=== PATIENT | female | born 1980 | race Caucasian/White ===

== ENCOUNTER 2016-09-16 02:13 | Emergency (ER) | payer OTHER ==
[2016-09-16 02:21] VITALS: RESP 18
[2016-09-16] MEDS ORDERED: KETOROLAC 15 MG/1 ML SDV IVP ONE (02:40)
[2016-09-16] MEDS ORDERED: DEXAMETHASONE 10 MG/ML VIAL IVP ONE (02:40)
[2016-09-16] MEDS ORDERED: METOCLOPRAMIDE 10 MG/2 ML VIAL IVP ONE (02:40)
[2016-09-16] MEDS ORDERED: NS 1,000 ML IV ONE (02:40)
--- NOTE | 2016-09-16 02:42 | EDPHY ---
H & P Stated Complaint: migraine/n/v Time Seen by Provider: 09/16/16 02:35 HPI/ROS: Chief Complaint: Migraine headache HPI: 36-year-old woman past medical history migraine headaches presenting with worsening headache nausea vomiting for the last 2 hours. Pain is in the left side of her head. Initially was a 10/10 but then she vomited is not a 7/10. It is not the worst headache of her life. Not sudden in onset. No fevers or chills. No neck pain or stiffness. Feels just like her prior headaches. She is not normally take anything other than ibuprofen and acetaminophen. No recent trauma. Has had increased stressors recently. ROS: 10 point Review of Systems is negative except as noted in the HPI. PMH: Migraine headaches Medications: None Allergies: No known drug allergies Social History: No smoking, no alcohol, no recreational drug use Family History: non-contributory Physical Exam: Gen: Awake, Alert, No Distress HEENT: Nose: no rhinorrhea Eyes: PERRLA, EOMI Mouth: Moist mucosa Neck: Supple, no JVD Chest: nontender, lungs clear to auscultation Heart: S1, S2 normal, no murmur Abd: Soft, non-tender, no guarding Back: no CVA tenderness, no midline tenderness Ext: no edema, non-tender Skin: no rash Neuro: CN II-XII intact, Sensation grossly intact, Strength 5/5 in bilateral upper and lower extremities - Medical/Surgical History Hx Asthma: No Hx Chronic Respiratory Disease: No Hx Diabetes: No Hx Cardiac Disease: No Hx Renal Disease: No Hx Cirrhosis: No Hx Alcoholism: No Hx HIV/AIDS: No Hx Splenectomy or Spleen Trauma: No Other PMH: foot surgery x2, tubal ligation, hysterectomy, tonsils and adenoids , melanoma on scalp, basal cell scalp, migraines, depression - Social History Smoking Status: Former smoker Constitutional: Initial Vital Signs Temperature (C) 36.8 C 09/16/16 02:17 Heart Rate 62 09/16/16 02:17 Respiratory Rate 18 09/16/16 02:17 Blood Pressure 108/79 09/16/16 02:17 O2 Sat (%) 96 09/16/16 02:17 O2 Delivery Mode Room Air Allergies/Adverse Reactions: No Known Allergies Allergy (Verified 09/16/16 02:21) Home Medications: Medication Instructions Recorded Ibuprofen [Motrin (*)] 600 mg PO Q6 #30 tab 09/27/15 Ondansetron Odt [Zofran Odt 4 mg 4 mg PO Q4 PRN #30 tab 09/27/15 (*)] FLUoxetine 09/16/16 Medical Decision Making ED Course/Re-evaluation: 36-year-old with a migraine headache. She has received Toradol, Reglan and dexamethasone. On reexamination at 3:21 a.m. her headache is down to a 3 on 10. She is feeling significantly improved. No more nausea or vomiting. She is asking to go home. Will discharge with follow-up with primary care physician. - Data Points Medications Given: Discontinued Medications Dexamethasone (Decadron Injection) 10 mg IVP EDNOW ONE Stop: 09/16/16 02:41 Last Admin: 09/16/16 02:46 Dose: 10 mg Sodium Chloride (Ns) 1,000 mls @ 0 mls/hr IV ONCE ONE PRN Reason: Wide Open Stop: 09/16/16 02:41 Last Admin: 09/16/16 02:43 Dose: 1,000 mls Ketorolac Tromethamine (Toradol) 15 mg IVP ONCE ONE Stop: 09/16/16 02:41 Last Admin: 09/16/16 02:48 Dose: 15 mg Metoclopramide HCl (Reglan Injection) 10 mg IVP EDNOW ONE Stop: 09/16/16 02:41 Last Admin: 09/16/16 02:53 Dose: 10 mg Departure - Departure Disposition: Home, Routine, Self-Care Clinical Impression: Migraine headache Condition: Good Instructions: Migraine Headache (ED) Additional Instructions: Follow up with your primary care physician in 2-4 days if symptoms are not improving. Return to the emergency depart for worsening headache, uncontrolled nausea vomiting, fevers, chills, or any other concerns. Referrals: Lauren Jon MD [Primary Care Provider] - As per Instructions
[2016-09-16 03:43] VITALS: BP 105/64; PULSE 60; TEMP 98.1; O2SAT 95
== END 2016-09-16 03:54 | disposition home or self-care (01) ==
DX: G43.909 Migraine, unspecified, not intractable, without status migrainosus (principal); Z87.891 Personal history of nicotine dependence
CPT/HCPCS: 96374; J1885; J2765